=== PATIENT | male | born 1980 | race Caucasian/White ===

== ENCOUNTER 2017-03-16 08:34 | Day surgery (SDC) | payer OTHER ==
[~2017-03-16] VITALS: Ht 182.9 cm; Wt 131.1 kg
[2017-03-16] VITALS (38 sets, daily range): BP systolic 118–186; BP diastolic 64–95; PULSE 65–100; RESP 9–31; Ht 182.9 cm; Wt 131.1 kg
[2017-03-16] MEDS ORDERED: CEFAZOLIN 2 GM/50 ML (PMX) 50 ML IVPB SCH (09:30)
[2017-03-16] MEDS ORDERED: LACTATED RINGER'S 1,000 ML IV* ONE (09:30)
[2017-03-16] MEDS ORDERED: BUPIVACAINE 0.25%/EPI (SDV) 30 ML INJ ONE (10:04)
[2017-03-16] MEDS ORDERED: SURGIFOAM POWDER 1 GM KIT ONE (10:04)
[2017-03-16] MEDS ORDERED: CA CHLORIDE 10% 10 ML SYRINGE ONE (10:05)
[2017-03-16] MEDS ORDERED: THROMBIN 5000 UNIT VIAL ONE (10:05)
[2017-03-16] MEDS ORDERED: POLYMYXIN/BACITRACIN 1L IRRIG ONE (10:05)
--- NOTE | 2017-03-16 10:48 | HPN ---
Date/Time of Note Date/Time of Note DATE: 03/16/17 TIME: 10:47 Interval H&P Admission Note Pt. seen H&P reviewed: No system changes ASHWINI PACK PA-C Mar 16, 2017 10:48
[2017-03-16] MEDS ORDERED: HYDROmorphONE 0.5 MG/0.5 ML SYG IV PRN (11:00)
[2017-03-16] MEDS ORDERED: AL HYDROX/MG HYDROX/SIMETH 30 ML CUP PO PRN (11:00)
[2017-03-16] MEDS ORDERED: ZOLPIDEM 5 MG TAB PO PRN (11:00)
[2017-03-16] MEDS ORDERED: ONDANSETRON 4 MG INJ IV PRN ×2 (11:00→14:00)
[2017-03-16] MEDS ORDERED: DIPHENHYDRAMINE 50 MG INJ IV PRN ×2 (11:00→14:00)
[2017-03-16] MEDS ORDERED: HYDROCODONE/APAP (10/325) TAB PO PRN ×2 (11:00)
[2017-03-16] MEDS ORDERED: NALOXONE (0.4 MG/ML) INJ IV PRN (11:00)
[2017-03-16] MEDS ORDERED: BISACODYL 10 MG SUPP PR PRN (11:00)
[2017-03-16] MEDS ORDERED: CEPASTAT LOZENGE MT PRN (11:00)
[2017-03-16] MEDS ORDERED: CYCLOBENZAPRINE 10 MG TAB PO PRN (11:00)
[2017-03-16] MEDS ORDERED: ACETAMINOPHEN 325 MG TAB PO PRN (11:00)
[2017-03-16] MEDS ORDERED: PROPOFOL 20 ML ONE (11:28)
[2017-03-16] MEDS ORDERED: FENTAnyl 50 MCG/ML VIAL ONE (11:34)
[2017-03-16] MEDS ORDERED: HYDROmorphONE 2 MG/ML SYG ONE (11:46)
[2017-03-16] MEDS ORDERED: LABETALOL HCL 20MG INJ ONE (11:55)
[2017-03-16] MEDS ORDERED: BUPIVACAINE 0.25% (MPF) 30 ML INJ ONE (12:46)
[2017-03-16] MEDS ORDERED: ROCURONIUM 50 MG INJ ONE (13:12)
[2017-03-16] MEDS ORDERED: LIDOCAINE 2% (SDV) 5 ML INJ ONE (13:12)
[2017-03-16] MEDS ORDERED: KETOROLAC 30 MG INJ ONE (13:12)
[2017-03-16] MEDS ORDERED: DEXAMETHASONE 4 MG/ML 1 ML INJ ONE (13:13)
--- NOTE | 2017-03-16 13:19 | SIPON ---
Date/Time of Note Date/Time of Note DATE: 03/16/17 TIME: 13:18 Operative Report Preoperative Diagnosis Left L4-5 disc herniation with radiculopathy Postoperative Diagnosis Left L4-5 disc herniation with radiculopathy Operation/Procedure Performed Left L4-5 discectomy Surgeon see signature line guest services assistant Lisy Mg Anesthesia: general Estimated blood loss: 10 - 50 ml's Transfusion Required none Specimen L4-5 disc Grafts/Implants none Complications none DICK TUCKER MD Mar 16, 2017 13:19
[2017-03-16] MEDS ORDERED: HYDROmorphONE (0.2 MG/ML) 10ML SYG IV ONE (13:34)
[2017-03-16] MEDS: HYDROmorphONE (0.2 MG/ML) 10ML SYG IV PRN ×5 (13:40→14:23)
[2017-03-16] MEDS ORDERED: EPHEDrine SULFATE 50 MG/5 ML SYG IV PRN (14:00)
[2017-03-16] MEDS ORDERED: LABETALOL HCL 20MG INJ IV PRN (14:00)
[2017-03-16] MEDS ORDERED: KETOROLAC 30 MG INJ IV PRN (14:00)
[2017-03-16] MEDS ORDERED: METOCLOPRAMIDE 10 MG INJ IV PRN (14:00)
[2017-03-16] MEDS ORDERED: CEFAZOLIN 1 GM/50 ML (PMX) 50 ML IVPB SCH (14:00)
[2017-03-16] MEDS ORDERED: MEPERIDINE 25 MG INJ IV PRN (14:00)
[2017-03-16] MEDS ORDERED: hydrALAzine 20 MG INJ IV PRN (14:00)
[2017-03-16] MEDS ORDERED: D5W-0.45 NACL + KCL 20 MEQ 1,000 ML IV SCH (14:00)
[2017-03-16] MEDS ORDERED: FENTAnyl 50 MCG/ML VIAL IV PRN ×3 (14:00)
[2017-03-16] MEDS ORDERED: ALBUTEROL 0.083% (NEB) 2.5 MG/3 ML AMP HHN PRN (14:00)
[2017-03-16] MEDS ORDERED: HYDROmorphONE (0.2 MG/ML) 10ML SYG IV PRN ×2 (14:00)
--- NOTE | 2017-03-16 14:34 | OPR ---
DATE OF OPERATION: 03/16/2017 PREOPERATIVE DIAGNOSES: 1. Left L4-5 disk herniation. 2. Morbid obesity (BMI greater than 40). 3. Left lumbar radiculopathy. POSTOPERATIVE DIAGNOSES: 1. Left L4-5 disk herniation. 2. Morbid obesity (BMI greater than 40). 3. Left lumbar radiculopathy. PROCEDURE: 1. Left L4-5 hemilaminotomy, partial medial facetectomy and foraminotomy. 2. Left L4-5 lumbar microdiskectomy. 3. Lateral localizing film x2. 4. Intraoperative neuromonitoring (1 hour 15 minutes). 5. Use of operative microscope. PRIMARY SURGEON: Nam Murillo MD GAME BIRD FARMER: GUERO Ramires NEED FOR OFFICE 365 CONSULTANT: During this spinal surgical procedure, my patent legal assistant was used to retrac t and protect the spinal nerves and dural sac. My patent legal assistant also employed the suction catheters to evacuate blood from the surgical field to improve visualization of the neural structures. The dann tant was medically necessary to facilitate the completion of the surgery in a safe and expeditious noé. State of [place] regulations, as well as hospital bylaws, preclude the use of non-license d health care personnel, such as operating room technicians, to perform these functions. FINDINGS: Neuromonitoring at the end of the case revealed left L5 amplitude down 40%. At the end o f the case, nerve signals returned to normal. The patient had herniation on the left at L4-5. He h ad morbid obesity and extended instruments had to be utilized. ESTIMATED BLOOD LOSS: Less than 40 mL. DRAINS: None. SPECIMENS: L4-5 disk. COMPLICATIONS OF PROCEDURE: None. ANESTHESIOLOGIST: Dr. Villar. TYPE OF ANESTHESIA: General. INDICATIONS FOR PROCEDURE: This is a 36-year-old gentleman with left lumbosacral radiculopathy in t he setting of a disk herniation at L4-5. He failed nonoperative measures, therefore, I recommended he undergo the above surgery. Preoperatively, we discussed the risks, benefits and alternatives. H e understood and wished to proceed. DESCRIPTION OF PROCEDURE IN DETAIL: The patient was identified in the preoperative holding area, [facility], taken to the operating room, where he was successfully placed under general an esthesia. Neuromonitoring leads were placed, sequential compressive devices were applied. Neuromon itoring was utilized during the procedure for 1 hour 15 minutes to include SSEP, MEP, and EMG. This was performed by [employer]. Start time was 12:00 p.m., closure time was 1:15 p.m. The jarrett ent was placed in downward turned prone position over a Epdro frame. All bony prominences were wel l padded. The back was sterilely prepped and draped in usual sterile fashion. Spinal needles were placed and lateral localizing films obtained to confirm the correct levels. Once this was confirmed , I injected the skin and subcutaneous tissue with Marcaine and epinephrine. Incision was then made over the L4-5 level. Incision was taken down to dorsal fascia, which was incised with Bovie cauter y. I then subperiosteally dissected the left L4 and L5 lamina. Kerrison was placed. Laurita retrac tor was placed. Lateral film was obtained to confirm the correct levels. Once this was confirmed, microscope was brought in and a left-sided hemilaminotomy, partial medial facetectomy and foraminoto my was performed at the L4-5 level. Ligamentum flavum was sharply dissected. My patent legal assistant then ret racted neural elements medially. Due to the patient's morbid obesity with BMI greater than 40, exte nded instruments had to be used. This made the procedure more difficult due to alteration of the fi eld. Once the nerve root was retracted, annulotomy was made followed by limited microdiskectomy. O nce this was done, I irrigated the disk space and the wound. At this point, all nerve signals retur renaldo to normal. Hemostasis was achieved with bipolar cautery and Surgifoam. Valsalva maneuver was p erformed and there was no leak of CSF. The wound was dry and therefore, I elected not to place a dr monzon. TTP and thrombin were injected for hemostatic purposes. Retractors were removed, and deep fas chepe was closed with a #1 Vicryl stitch. Subcutaneous tissue was closed with 2-0 Vicryl stitch. A 4 -0 Monocryl closure was then performed. Dermabond was then applied. The patient was then awakened from anesthesia and taken to recovery room in stable condition. Lap, sponge and instrument counts w ere correct x2. There were no apparent complications during the procedure. The patient will be admitted to the orthopedic shea for routine postoperative care to include pain c ontrol, neurovascular checks, antibiotics, and physical therapy. Dictated By: NAM SAL/LOU Conf#: [id number] DID#: [id number]
--- NOTE | 2017-03-16 15:37 | RADRPT ---
PROCEDURE: Lumbar spine x-ray CLINICAL INDICATION: Lumbar spine surgery TECHNIQUE: Single intraoperative lateral view of the lumbar spine is available for review COMPARISON: None available FINDINGS: Surgical probe is seen at the L3-4 and L4-L5 disc levels. Single lateral x-ray of the lumbar spine was performed intraoperatively for localization during the procedure in progress. RPTAT: ZZ IMPRESSION: 1. Intraoperative x-ray for localization during lumbar spinal surgical procedure. .Sherie Magana MD, Date Time Electronically viewed and signed by .Sherie Magana MD, on 03/16/2017 15:37 .T/
--- NOTE | 2017-03-16 15:38 | RADRPT ---
PROCEDURE: Lumbar spine x-ray CLINICAL INDICATION: Lumbar spine surgery TECHNIQUE: Single intraoperative lateral view of the lumbar spine is available for review COMPARISON: None available FINDINGS: Surgical probe is seen at the L4-L5 disc level for microdiskectomy Single lateral x-ray of the lumb ar spine was performed intraoperatively for localization during the procedure in progress. RPTAT: ZZ IMPRESSION: 1. Intraoperative x-ray for localization during lumbar spinal L4-L5 microdiskectomy. .Sherie Magana MD, Date Time Electronically viewed and signed by .Sherie Magana MD, on 03/16/2017 15:38 .T/
--- NOTE | 2017-03-16 18:46 | DS ---
Date/Time of Note Date/Time of Note DATE: 03/16/17 TIME: 18:46 Discharge Summary Admission/Discharge Info Admit Date/Time 03/16 Discharge Date/Time 03/16 Discharge Diagnosis Status post lumbar discectomy Patient Condition: Good Hospital Course Patient was admitted to orthopedic shea after undergoing the above procedure. On postoperative day 0 he was deemed stable for discharge with follow-up arranged with the undersigned Home Meds No Active Prescriptions or Reported Meds Primary Care Provider Not On Staff Doctor DICK TUCKER MD Mar 16, 2017 18:46
[2017-03-16] MEDS ORDERED: DOCUSATE SODIUM 100 MG CAP PO SCH (21:00)
== END 2017-03-16 20:25 | disposition home or self-care (01) ==
LOC: SDS 08:34 → EDSTATUS 11:30 → MS1 17:15 → SDS 20:25
PROVIDERS: ATTEND Specialist
DX: M51.26 Other intervertebral disc displacement, lumbar region (principal); M54.16 Radiculopathy, lumbar region; E66.01 Morbid (severe) obesity due to excess calories
CPT/HCPCS: 63030; 72020; 84703; 86999; G0378; J0690; J1100; J1170; J1885; J2175; J3010; J3480